=== PATIENT | male | born 1930 | race Caucasian/White ===

== ENCOUNTER → 2016-09-27 | Outpatient (CLI) | payer MEDICARE ==
[~2016-09-27] MED LIST: AUGMENTIN 875-1 EACH PO; COREG 3.125M3.125 MG PO; FLOMAX 0.4 MG0.4 MG PO; LASIX 40 MG TAB40 MG PO; LEVAQUIN500 MG PO; MEDROL DOSEPAK 24 MG PO; NITROSTAT 0.40.4 MG SL; PLAVIX 75 MG TA75 MG PO; VENTOLIN/PROVE0.5 ML INH; ZOCOR 40 MG TAB40 MG PO
== END ==
DX: R05 Cough (principal)
CPT/HCPCS: 71020

== ENCOUNTER 2016-12-04 17:09 | Inpatient (IN) | payer MEDICARE ==
[~2016-12-04] VITALS: Ht 160 cm; Wt 44.5 kg
[2016-12-04 17:57] LABS: HEMOGLOBIN 14.7 gm/dl (14.0-17.5); RED BLOOD COUNT 4.64 M/UL (4.20-5.50); WHITE BLOOD COUNT 14.9 K/UL (4.5-11.0)
[2016-12-05 02:55] LABS: HEMOGLOBIN 12.9 gm/dl (14.0-17.5)
[2016-12-05 03:14] LABS: RED BLOOD COUNT 4.08 M/UL (4.20-5.50); WHITE BLOOD COUNT 9.9 K/UL (4.5-11.0)
[2016-12-05] MEDS ORDERED: AUGMENTIN 875-1 EACH PO (17:56)
[2016-12-05] MEDS ORDERED: PLAVIX 75 MG TA75 MG PO (17:57)
[2016-12-05] MEDS ORDERED: MEDROL DOSEPAK 24 MG PO (17:57)
[2016-12-05] MEDS ORDERED: COREG 3.125M3.125 MG PO (17:57)
[2016-12-05] MEDS ORDERED: ZOCOR 40 MG TAB40 MG PO (17:58)
[2016-12-05] MEDS ORDERED: FLOMAX 0.4 MG0.4 MG PO (17:59)
[2016-12-05] MEDS ORDERED: VENTOLIN/PROVE0.5 ML INH (18:00)
[2016-12-05] MEDS ORDERED: LASIX 40 MG TAB40 MG PO (18:00)
[2016-12-05] MEDS ORDERED: NITROSTAT 0.40.4 MG SL (18:02)
[2016-12-07] MEDS ORDERED: LEVAQUIN500 MG PO (10:41)
== END 2016-12-07 14:42 | disposition home or self-care (01) | DRG 871 ==
LOC: ER1 17:09 → ZEROF 18:59 → MED SURG 4 21:00
PROVIDERS: Emergency Medicine; Family Medicine; ADMIT Internal Medicine
DX: A41.9 Sepsis, unspecified organism (principal); J18.9 Pneumonia, unspecified organism; J44.0 Chronic obstructive pulmonary disease with (acute) lower respiratory infection; N17.9 Acute kidney failure, unspecified; B37.0 Candidal stomatitis; E87.2 Acidosis; E86.0 Dehydration; E87.6 Hypokalemia; R63.0 Anorexia; R63.4 Abnormal weight loss; I25.10 Atherosclerotic heart disease of native coronary artery without angina pectoris; I10 Essential (primary) hypertension; J44.9 Chronic obstructive pulmonary disease, unspecified; F17.210 Nicotine dependence, cigarettes, uncomplicated; F01.50 Vascular dementia, unspecified severity, without behavioral disturbance, psychotic disturbance, mood disturbance, and anxiety; F03.90 Unspecified dementia, unspecified severity, without behavioral disturbance, psychotic disturbance, mood disturbance, and anxiety; Z95.1 Presence of aortocoronary bypass graft; Z82.49 Family history of ischemic heart disease and other diseases of the circulatory system
CPT/HCPCS: 36415; 71010; 71260; 76705; 80053; 82550; 82553; 82962; 83605; 83874; 83880; 84132; 84484; 85025; 87040; 87070; 87205; 93005; 94640; 94664; 96365; 96376; 99285; J1956; J7040; J7050; Q9962

== ENCOUNTER 2021-02-14 08:44 | Emergency (ER) | payer MEDICARE ==
[~2021-02-14 08:44] MED LIST changes: +MEDROL4 MG PO; +MEGACE 400400 MG/10 PO; +OMNICEF 300 MG300 MG PO
[2021-02-14 09:32] LABS: RED BLOOD COUNT 5.06 M/UL (4.20-5.50); WHITE BLOOD COUNT 9.2 K/UL (4.5-11.0)
== END 2021-02-14 14:20 | disposition home or self-care (01) ==
LOC: ER1 08:44
PROVIDERS: Emergency Medicine
DX: S70.02XA Contusion of left hip, initial encounter (principal); C34.90 Malignant neoplasm of unspecified part of unspecified bronchus or lung; I25.10 Atherosclerotic heart disease of native coronary artery without angina pectoris; F17.200 Nicotine dependence, unspecified, uncomplicated; W19.XXXA Unspecified fall, initial encounter; Z20.822 Contact with and (suspected) exposure to COVID-19
CPT/HCPCS: 0240U; 71045; 71250; 73502; 80053; 82550; 82553; 84484; 85025; 94640; 94664; 94760; 99284

== ENCOUNTER 2021-03-15 13:19 | Emergency (ER) | payer MEDICARE | END 2021-03-15 17:32 | disposition home or self-care (01) | LOC: ER1 13:19 | DX: F03.90 Unspecified dementia, unspecified severity, without behavioral disturbance, psychotic disturbance, mood disturbance, and anxiety (principal); R91.1 Solitary pulmonary nodule; R62.51 Failure to thrive (child); F17.210 Nicotine dependence, cigarettes, uncomplicated | CPT/HCPCS: 93005; 99285 ==